=== PATIENT | female | born 1990 | race Caucasian/White ===

== ENCOUNTER → 2020-12-10 | Day surgery (SDC) | payer BC, OTHER ==
[~2020-12-10] MED LIST: ACYCLOVIR PO; LEXAPRO5 MG PO
[2020-12-10 10:52] LABS: HEMOGLOBIN 14.4 gm/dl (12.3-15.3); RED BLOOD COUNT 4.92 M/UL (4.00-5.10); WHITE BLOOD COUNT 6.2 K/UL (4.5-11.0)
== END | disposition home or self-care (01) ==
LOC: OR 07:30
PROVIDERS: Obstetrics & Gynecology
DX: N84.2 Polyp of vagina (principal); F41.9 Anxiety disorder, unspecified; F32.9 Major depressive disorder, single episode, unspecified; Z86.16 Personal history of COVID-19; Z88.0 Allergy status to penicillin; Z79.899 Other long term (current) drug therapy; Z53.29 Procedure and treatment not carried out because of patient's decision for other reasons
CPT/HCPCS: 81001; 84703; 85027; J7120